=== PATIENT | female | born 1985 ===

== ENCOUNTER 2020-01-13 14:24 | Inpatient (IN) ==
[2020-01-13] MEDS ORDERED: GLUCAGON 1 MG VIAL IM PRN (16:17)
[2020-01-13] MEDS ORDERED: DEXTROSE 10% 250 ML BAG IV PRN (16:17)
[2020-01-13 16:51] LABS: Basophils # 0.1 10*3/uL (0.0-0.2); Basophils % 0.5 % (0.0-0.8); Eosinophils # 0.2 10*3/uL (0.0-0.87); Eosinophils % 2.1 % (0.00-10.9); Hematocrit 30.3 VOL% (35.7-47.0); Hemoglobin 9.7 GM/DL (12.0-16.0); Immature Granulocytes % 0.5 %; Immature Granulocytes Absolute 0.05 #; Lymphocytes % 18.6 % (21.3-54.2); Mean Corpuscular Volume 88.3 FL (87-102); Mean Platelet Volume 9.6 FL (9.6-12.0); Monocytes % 8.4 % (1.7-12.7); Neutrophils % 69.9 % (38.7-73.9); Platelet Count 306 T/CUMM (130-400); Red Blood Count 3.43 MC/CUMM (3.8-5.5); White Blood Count 10.5 T/CUMM (4-12)
[2020-01-13 17:14] LABS: Albumin 2.3 G/DL (3.4-5.0); Bilirubin,Total 1.6 MG/DL (0.2-1.0); Calcium 8.5 MG/DL (8.5-10.1); Total Protein 7.4 G/DL (6.4-8.3)
[2020-01-13] MEDS ORDERED: DEXTROSE 50% 25 GM/50 ML VIAL IV PRN (17:46)
[2020-01-13 19:08] LABS: Band Neutrophils 1 % (0-10); Eosinophils 2 % (0-10); Lymphocytes 17 % (20-55); Platelet Estimate Normal; Segmented Neutrophils 72 % (50-85); Total Cells Counted 100
[2020-01-13] MEDS: INSULIN LISPRO 100 UNIT/ML SUBCUT SCH (21:52)
[2020-01-14] MEDS ORDERED: ACETAMINOPHEN 325 MG TABLET PO ONE (05:44)
[2020-01-14 06:34] LABS: Basophils # 0.1 10*3/uL (0.0-0.2); Basophils % 0.5 % (0.0-0.8); Eosinophils # 0.2 10*3/uL (0.0-0.87); Eosinophils % 1.6 % (0.00-10.9); Hemoglobin 10.3 GM/DL (12.0-16.0); Immature Granulocytes % 0.5 %; Immature Granulocytes Absolute 0.06 #; Lymphocytes # 2.8 10*3/uL (1.4-4.0); Lymphocytes % 23.4 % (21.3-54.2); Mean Corpuscular HGB Conc 32.2 GM/DL (32-36); Mean Platelet Volume 10.1 FL (9.6-12.0); Monocytes % 7.6 % (1.7-12.7); Neutrophils % 66.4 % (38.7-73.9); Platelet Count 352 T/CUMM (130-400); Red Blood Count 3.68 MC/CUMM (3.8-5.5); Red Cell Distribution Width 12.8 % (9.3-17.3); White Blood Count 12.1 T/CUMM (4-12)
[2020-01-14 07:11] LABS: Calcium 8.8 MG/DL (8.5-10.1); Osmolality,Calculated 271.1 MOS/KG (273-304)
[2020-01-14] MEDS ORDERED: ceFAZolin 1,000 MG in SYRINGE 1 EACH IV ONE (07:32)
[2020-01-14] MEDS: INSULIN LISPRO 100 UNIT/ML SUBCUT SCH ×3 (07:39→21:13)
[2020-01-14] MEDS ORDERED: DIAZEPAM 5 MG TABLET PO ONE (07:55)
[2020-01-14] MEDS ORDERED: FAMOTIDINE 20 MG TABLET PO ONE (07:55)
[2020-01-14] MEDS: PIPERACILLIN/TAZOBACTAM 3,375 MG in SODIUM CHLORIDE 0.9% 100 ML IV SCH ×3 (08:07→23:32)
[2020-01-14] MEDS: lisinopriL 10 MG TABLET PO SCH (09:31)
[2020-01-14] MEDS: hydroCHLOROthiazide 25 MG TABLET PO SCH (09:31)
[2020-01-14] MEDS ORDERED: propofoL 200 MG/20 ML VIAL IV ONE (10:27)
[2020-01-14] MEDS ORDERED: SEVOFLURANE 1 UNIT/15 MINUTE INH ONE (10:27)
[2020-01-14] MEDS ORDERED: LIDOCAINE 2% 5 ML VIAL ONE (10:27)
[2020-01-14] MEDS ORDERED: ONDANSETRON 4 MG/2 ML VIAL ONE (10:28)
[2020-01-14] MEDS ORDERED: fentaNYL 100 MCG/2 ML VIAL ONE (10:28)
[2020-01-14] MEDS ORDERED: MIDAZOLAM 2 MG/2 ML VIAL ONE (10:28)
[2020-01-14 11:35] LABS: Lymphocytes 19 % (20-55); Myelocytes 1 %; Segmented Neutrophils 77 % (50-85); Total Cells Counted 100
[2020-01-14 11:36] LABS: Atypical Lymphocytes Few; Giant Platelets Few; Hypochromasia 1+; Microcytosis Slight; Platelet Estimate Increased; Polychromasia Slight
[2020-01-14] MEDS ORDERED: ACETAMINOPHEN 325 MG TABLET PO PRN (14:19)
[2020-01-14] MEDS: SIMVASTATIN 10 MG TABLET PO SCH (18:03)
[2020-01-14] MEDS: ASPIRIN EC 81 MG TABLET PO SCH (18:06)
[2020-01-15 06:59] LABS: Basophils # 0.1 10*3/uL (0.0-0.2); Basophils % 0.5 % (0.0-0.8); Eosinophils # 0.2 10*3/uL (0.0-0.87); Hematocrit 29.3 VOL% (35.7-47.0); Hemoglobin 9.6 GM/DL (12.0-16.0); Immature Granulocytes % 0.7 %; Immature Granulocytes Absolute 0.07 #; Lymphocytes # 2.7 10*3/uL (1.4-4.0); Lymphocytes % 27.6 % (21.3-54.2); Mean Corpuscular HGB Conc 32.8 GM/DL (32-36); Mean Corpuscular Volume 84.9 FL (87-102); Mean Platelet Volume 9.8 FL (9.6-12.0); Neutrophils % 60.2 % (38.7-73.9); Platelet Count 340 T/CUMM (130-400); Red Blood Count 3.45 MC/CUMM (3.8-5.5); Red Cell Distribution Width 12.7 % (9.3-17.3); White Blood Count 9.7 T/CUMM (4-12)
[2020-01-15 07:06] LABS: Calcium 9.1 MG/DL (8.5-10.1); Osmolality,Calculated 270.4 MOS/KG (273-304)
[2020-01-15] MEDS: PIPERACILLIN/TAZOBACTAM 3,375 MG in SODIUM CHLORIDE 0.9% 100 ML IV SCH ×3 (08:51→23:55)
[2020-01-15] MEDS: INSULIN LISPRO 100 UNIT/ML SUBCUT SCH ×4 (08:51→20:48)
[2020-01-15] MEDS: lisinopriL 10 MG TABLET PO SCH (08:52)
[2020-01-15] MEDS: hydroCHLOROthiazide 25 MG TABLET PO SCH (08:52)
[2020-01-15] MEDS: ASPIRIN EC 81 MG TABLET PO SCH (08:52)
[2020-01-15 12:54] LABS: Polychromasia Slight
[2020-01-15 12:55] LABS: Hypochromasia 2+; Platelet Estimate Normal
[2020-01-15] MEDS: GLIMEPIRIDE 2 MG TABLET PO SCH ×2 (14:53→20:48)
[2020-01-15] MEDS: SIMVASTATIN 10 MG TABLET PO SCH (17:17)
[2020-01-16 08:36] LABS: Basophils # 0.1 10*3/uL (0.0-0.2); Basophils % 0.6 % (0.0-0.8); Eosinophils # 0.2 10*3/uL (0.0-0.87); Eosinophils % 1.8 % (0.00-10.9); Hematocrit 32.5 VOL% (35.7-47.0); Hemoglobin 10.5 GM/DL (12.0-16.0); Lymphocytes # 2.6 10*3/uL (1.4-4.0); Lymphocytes % 26.6 % (21.3-54.2); Mean Corpuscular HGB Conc 32.3 GM/DL (32-36); Mean Corpuscular Volume 86.7 FL (87-102); Mean Platelet Volume 9.7 FL (9.6-12.0); Monocytes % 7.4 % (1.7-12.7); Neutrophils % 62.6 % (38.7-73.9); Platelet Count 407 T/CUMM (130-400); Red Blood Count 3.75 MC/CUMM (3.8-5.5); Red Cell Distribution Width 12.6 % (9.3-17.3); White Blood Count 9.8 T/CUMM (4-12)
[2020-01-16 08:58] LABS: Eosinophils 2 % (0-10); Hypochromasia 1+; Lymphocytes 30 % (20-55); Microcytosis Slight; Platelet Estimate Adequate; Segmented Neutrophils 61 % (50-85); Total Cells Counted 100
[2020-01-16] MEDS: INSULIN LISPRO 100 UNIT/ML SUBCUT SCH ×4 (09:38→21:56)
[2020-01-16] MEDS: hydroCHLOROthiazide 25 MG TABLET PO SCH (09:39)
[2020-01-16] MEDS: VANCOMYCIN INJ 2,000 MG in SODIUM CHLORIDE 0.9% 500 ML IV SCH ×2 (09:39→21:24)
[2020-01-16] MEDS: GLIMEPIRIDE 2 MG TABLET PO SCH ×2 (09:40→17:33)
[2020-01-16] MEDS: lisinopriL 10 MG TABLET PO SCH (09:40)
[2020-01-16] MEDS: ASPIRIN EC 81 MG TABLET PO SCH (09:40)
[2020-01-16] MEDS: PIPERACILLIN/TAZOBACTAM 3,375 MG in SODIUM CHLORIDE 0.9% 100 ML IV SCH ×2 (12:29→17:34)
[2020-01-16] MEDS ORDERED: MAGNESIUM OXIDE 400 MG TABLET PO ONE (13:21)
[2020-01-16] MEDS: ASCORBIC ACID 500 MG TABLET PO SCH (15:50)
[2020-01-16] MEDS: INSULIN GLARGINE 100 UNIT/ML SUBCUT SCH (15:50)
[2020-01-16] MEDS: LACTOBACILLUS ACIDOPHILUS/BULGARICUS CHEW TABLET PO SCH (15:58)
[2020-01-16] MEDS: SIMVASTATIN 10 MG TABLET PO SCH (17:33)
[2020-01-17] MEDS: PIPERACILLIN/TAZOBACTAM 3,375 MG in SODIUM CHLORIDE 0.9% 100 ML IV SCH ×3 (02:37→19:36)
[2020-01-17 06:43] LABS: Basophils # 0.1 10*3/uL (0.0-0.2); Basophils % 0.5 % (0.0-0.8); Eosinophils # 0.2 10*3/uL (0.0-0.87); Eosinophils % 2.4 % (0.00-10.9); Hematocrit 31.3 VOL% (35.7-47.0); Hemoglobin 10.6 GM/DL (12.0-16.0); Immature Granulocytes % 0.9 %; Immature Granulocytes Absolute 0.09 #; Lymphocytes # 2.7 10*3/uL (1.4-4.0); Lymphocytes % 27.7 % (21.3-54.2); Mean Corpuscular HGB Conc 33.9 GM/DL (32-36); Mean Corpuscular Volume 84.1 FL (87-102); Mean Platelet Volume 9.5 FL (9.6-12.0); Monocytes % 7.6 % (1.7-12.7); Neutrophils % 60.9 % (38.7-73.9); Platelet Count 386 T/CUMM (130-400); Red Blood Count 3.72 MC/CUMM (3.8-5.5); Red Cell Distribution Width 12.6 % (9.3-17.3); White Blood Count 9.6 T/CUMM (4-12)
[2020-01-17 07:04] LABS: Eosinophils 5 % (0-10); Hypochromasia 1+; Lymphocytes 21 % (20-55); Microcytosis Slight; Platelet Estimate Adequate; Segmented Neutrophils 61 % (50-85); Total Cells Counted 100
[2020-01-17] MEDS ORDERED: LORazepam 1 MG TABLET PO ONE (07:44)
[2020-01-17] MEDS ORDERED: diphenhydrAMINE CAP 25 MG CAPSULE PO ONE (07:45)
[2020-01-17 08:35] LABS: Albumin 2.2 G/DL (3.4-5.0); Bilirubin,Total 0.4 MG/DL (0.2-1.0); Calcium 9.4 MG/DL (8.5-10.1); Osmolality,Calculated 271.2 MOS/KG (273-304); Total Protein 7.9 G/DL (6.4-8.3); VLDL CHOLESTEROL 30.4 MG/DL
[2020-01-17] MEDS: INSULIN LISPRO 100 UNIT/ML SUBCUT SCH ×4 (10:31→20:48)
[2020-01-17] MEDS: GLIMEPIRIDE 2 MG TABLET PO SCH ×2 (12:55→17:51)
[2020-01-17] MEDS: ASPIRIN EC 81 MG TABLET PO SCH (12:56)
[2020-01-17] MEDS: hydroCHLOROthiazide 25 MG TABLET PO SCH (12:56)
[2020-01-17] MEDS: ASCORBIC ACID 500 MG TABLET PO SCH (12:56)
[2020-01-17] MEDS: lisinopriL 10 MG TABLET PO SCH (12:56)
[2020-01-17] MEDS: ENOXAPARIN 40 MG/0.4 ML SYRINGE SUBCUT SCH (12:57)
[2020-01-17] MEDS: INSULIN GLARGINE 100 UNIT/ML SUBCUT SCH (13:01)
[2020-01-17] MEDS: VANCOMYCIN INJ 2,000 MG in SODIUM CHLORIDE 0.9% 500 ML IV SCH (16:54)
[2020-01-17] MEDS: SIMVASTATIN 10 MG TABLET PO SCH (17:51)
[2020-01-17] MEDS: LACTOBACILLUS ACIDOPHILUS/BULGARICUS CHEW TABLET PO SCH ×2 (18:28→20:49)
[2020-01-18] MEDS: PIPERACILLIN/TAZOBACTAM 3,375 MG in SODIUM CHLORIDE 0.9% 100 ML IV SCH ×2 (01:43→15:02)
[2020-01-18 05:29] LABS: Basophils # 0.1 10*3/uL (0.0-0.2); Basophils % 0.6 % (0.0-0.8); Eosinophils # 0.2 10*3/uL (0.0-0.87); Eosinophils % 2.5 % (0.00-10.9); Hematocrit 31.8 VOL% (35.7-47.0); Hemoglobin 10.4 GM/DL (12.0-16.0); Immature Granulocytes % 1.2 %; Immature Granulocytes Absolute 0.11 #; Lymphocytes # 2.8 10*3/uL (1.4-4.0); Mean Corpuscular HGB Conc 32.7 GM/DL (32-36); Mean Platelet Volume 9.6 FL (9.6-12.0); Monocytes % 6.2 % (1.7-12.7); Neutrophils % 60.5 % (38.7-73.9); Platelet Count 422 T/CUMM (130-400); Red Blood Count 3.74 MC/CUMM (3.8-5.5); Red Cell Distribution Width 12.5 % (9.3-17.3); White Blood Count 9.5 T/CUMM (4-12)
[2020-01-18 05:36] LABS: Albumin 2.3 G/DL (3.4-5.0); Bilirubin,Total 0.6 MG/DL (0.2-1.0); Calcium 8.8 MG/DL (8.5-10.1); Osmolality,Calculated 276.8 MOS/KG (273-304); Total Protein 7.6 G/DL (6.4-8.3)
[2020-01-18] MEDS: VANCOMYCIN INJ 2,000 MG in SODIUM CHLORIDE 0.9% 500 ML IV SCH (05:54)
[2020-01-18] MEDS: INSULIN LISPRO 100 UNIT/ML SUBCUT SCH ×2 (08:44→12:02)
[2020-01-18] MEDS ORDERED: DEXTROSE 50% 25 GM/50 ML VIAL IV PRN (09:08)
[2020-01-18] MEDS ORDERED: GLUCAGON 1 MG VIAL IM PRN (09:08)
[2020-01-18] MEDS: hydroCHLOROthiazide 25 MG TABLET PO SCH (10:21)
[2020-01-18] MEDS: ASCORBIC ACID 500 MG TABLET PO SCH (10:21)
[2020-01-18] MEDS: ASPIRIN EC 81 MG TABLET PO SCH (10:21)
[2020-01-18] MEDS: GLIMEPIRIDE 2 MG TABLET PO SCH (10:21)
[2020-01-18] MEDS: lisinopriL 10 MG TABLET PO SCH (10:21)
[2020-01-18] MEDS: LACTOBACILLUS ACIDOPHILUS/BULGARICUS CHEW TABLET PO SCH (10:21)
[2020-01-18] MEDS: INSULIN GLARGINE 100 UNIT/ML SUBCUT SCH (10:21)
[2020-01-18] MEDS ORDERED: MAGNESIUM SULF RIDER 2 GM in PREMIX 1 EACH IV ONE (11:08)
[2020-01-18 11:41] VITALS: BP 138/87
[2020-01-18] MEDS: ENOXAPARIN 40 MG/0.4 ML SYRINGE SUBCUT SCH (12:02)
== END 2020-01-18 15:21 | disposition home or self-care (01) | DRG 264 ==
LOC: SUATTDRO 15:55 → N.3E 15:55
PROVIDERS: ADMIT Internal Medicine; ATTEND Internal Medicine